=== PATIENT | male | born 1950 | race Caucasian/White ===

== ENCOUNTER → 2020-02-25 13:36 | Outpatient (BNVA) | payer MEDICARE, SELFPAY | PROVIDERS: PCP Family Medicine; Visit Provider Urology | DX: N40.1 Benign prostatic hyperplasia with lower urinary tract symptoms (principal); N13.8 Other obstructive and reflux uropathy; N52.01 Erectile dysfunction due to arterial insufficiency; Z79.899 Other long term (current) drug therapy | CPT/HCPCS: Q3014 ==

== ENCOUNTER → 2020-03-07 10:18 | Outpatient (BNVA) | payer MEDICARE, SELFPAY | PROVIDERS: PCP Family Medicine; Visit Provider Urology | DX: N40.1 Benign prostatic hyperplasia with lower urinary tract symptoms (principal); N13.8 Other obstructive and reflux uropathy; Z12.5 Encounter for screening for malignant neoplasm of prostate | CPT/HCPCS: 51798; 99212 ==

== ENCOUNTER → 2020-09-13 10:14 | Outpatient (BNVA) | payer MEDICARE, SELFPAY | PROVIDERS: PCP Family Medicine; Visit Provider Urology | DX: N40.1 Benign prostatic hyperplasia with lower urinary tract symptoms (principal); N13.8 Other obstructive and reflux uropathy; N52.01 Erectile dysfunction due to arterial insufficiency | CPT/HCPCS: 51798; 99212 ==

== ENCOUNTER → 2022-10-03 08:57 | Outpatient (BNVA) | payer OTHER, SELFPAY | PROVIDERS: PCP Family Medicine; Visit Provider Physician Assistant | DX: S39.012A Strain of muscle, fascia and tendon of lower back, initial encounter (principal); X50.9XXA Other and unspecified overexertion or strenuous movements or postures, initial encounter | CPT/HCPCS: 99202 ==

== ENCOUNTER 2023-03-21 10:34 | Outpatient (AMB) | payer MEDICARE, SELFPAY ==
--- NOTE | 2023-03-21 10:39 | MHC.OFFVIS ---
Intake Intake Visit Reasons: Elevated PSA Intake Note: Patient is Present for Follow Up Urology Medication: Sildenafil, Tadalafil, Tamsulosin Antibiotic Allergies: None Blood Thinners: Warfarin PVR: 30 Allergies oxycodone [From TYLOX] Allergy (Intermediate, Verified 03/21/23 10:43) RASH Tylox Allergy (Unknown, Uncoded 03/21/23 10:43) Unknown Medication List - Last Reconciled 03/21/23 by Allan Alba MD atorvastatin 40 mg PO DAILY lisinopril 10 mg PO DAILY sildenafil 100 mg PO DAILY PRN tadalafil 10 mg PO DAILY PRN tadalafil 10 mg PO DAILY 90 days tamsulosin 0.4 mg PO DAILY tamsulosin 0.8 mg (2 x 0.4 mg) PO BEDTIME 90 days trimethoprim 100 mg PO DAILY venlafaxine ER 150 mg PO DAILY warfarin 7.5 mg PO BEDTIME warfarin 1 mg PO DAILY zolpidem 5 mg PO BEDTIME PRN HPI HPI Comments History of Present Illness Details Matt is a pleasant male. He is a patient Dr. Rincon. He is seen for the following urologic issues - lower urinary tract symptoms - erectile dysfunction Question of slight rise of PSA Will repeat Also noted to have some weakness of stream Nocturia x3 Recommend cystoscopy to check for bladder neck opening Lower Urinary Tract Symptoms: Current visit is for further evaluation of, lower urinary tract symptoms, stable stream with urgency Prior treatment includes GreenLight laser 10/24 Prostate Symptom Score 6/20 , Moderate (9-19), Bother 3. Results from testing include cystoscopy Enlarged lateral lobes 09/24 bladder trabeculation diverticular Prior Prostate Score moderate. PSA / 2.8 4/20 1.7 Erectile dysfunction Failed off high-dose tadalafil daily Prescription provided Also using PGE 1 gel with some success Considering penile injections [facility] Medical History HTN (hypertension) Hyperlipidemia Depressive disorder Elevated PSA Benign prostatic hyperplasia with lower urinary tract symptoms Nocturia Erectile dysfunction due to arterial insufficiency Surgical History History of surgery Review of Systems Const Denies chills and Denies fever(s) Card Reports no additional complaints and Denies syncope Resp Denies cough GI Denies abdominal pain and Denies heartburn Reports as per HPI and Denies change in libido Neuro Denies syncope Psych Denies change in libido Endo Denies change in libido Physical Exam Const General: cooperative, healthy appearing, comfortable and no acute distress Orientation/consciousness: patient oriented x3 HEENT Face and sinus: Yes normal facial exam Mouth: moist mucous membranes Neck Neck: Yes normal visual inspection, Yes full ROM and Yes trachea midline Chest Chest palpation & inspection: normal inspection of the chest Resp Effort & Inspection: normal respiratory effort, able to speak in complete sentences and no respiratory distress GI Inspection: Yes normal to inspection Back/Spine/Pelvis Cervical Spine: normal cervical lordosis Thoracic/Lumbar Spine: thoracic and lumbar spine normal to inspection Skin General skin exam: no rashes or lesions noted Neuro General: patient oriented x3, gait normal, tone normal and moves all extremities Extrem General: Yes normal to inspection and Yes capillary refill normal Office Procedures Post Void Residual Post Residual Void Post Void Residual (PVR): 30 [id number] Void Residual by ultrasound Assessment & Plan Assessment & Plan (1) Erectile dysfunction due to arterial insufficiency: Code(s): N52.01 - Erectile dysfunction due to arterial insufficiency (2) BPH w urinary obs/LUTS: Code(s): N40.1 - Benign prostatic hyperplasia with lower urinary tract symptoms; N13.8 - Other obstructive and reflux uropathy Plan PSA, cystoscopy Orders: Orders AMB Post Void Residual by ultrasound Today N13.8 - Other obstructive and reflux uropathy, N40.1 - Benign prostatic hyperplasia with lower urinary tract symptoms Prostate Specific Antigen Today E11.69 - Type 2 diabetes mellitus with other specified complication, N13.8 - Other obstructive and reflux uropathy, N40.1 - Benign prostatic hyperplasia with lower urinary tract symptoms, N52.1 - Erectile dysfunction due to diseases classified elsewhere Medications: Discontinued tadalafil Discontinued Reason: Patient Completed Course 10 mg PO DAILY 90 days 90 tabs 0RF tamsulosin Discontinued Reason: Patient no longer taking 0.8 mg (2 x 0.4 mg) PO BEDTIME 90 days 180 caps 2RF Patient Instructions: Imaging studies, laboratory and physical exam results were discussed and reviewed in detail. No major barriers to patient understanding were identified. An opportunity to ask questions regarding the treatment plan was provided. All questions were answered. The patient expressed understanding and agreement with the above treatment plan. The patient is aware they should contact our office by phone for worsening of their current condition or the appearance of new urologic symptoms. Compliance is encouraged with any medications and followup testing that is ordered. It is a privilege to participate in the urologic care of your patient. If you have any questions or concerns regarding treatment for the above conditions, or other urologic issues, please do not hesitate to contact me. The office telephone contact is [phone]. This note is constructed using voice recognition software. While every effort has been made to ensure accuracy shell machine operator errors may have been included. Yours sincerely, Dr Allan Alba MD, [facility] - Urology Providers of Expert, Compassionate Care for the Genitourinary System Coding Level of Care Code Est Pt Level 4 (26715) Diagnoses Erectile dysfunction due to arterial insufficiency N52.01 BPH w urinary obs/LUTS N40.1; N13.8 CPT Codes Post Residual Void - PVR CPT Code: 76626-Pqhe Void Residual by ultrasound ([id number])
== END 2023-03-21 11:06 | disposition home or self-care (01) ==
PROVIDERS: PCP Family Medicine; Visit Provider Urology
DX: N52.01 Erectile dysfunction due to arterial insufficiency (principal); N40.1 Benign prostatic hyperplasia with lower urinary tract symptoms; N13.8 Other obstructive and reflux uropathy; R35.1 Nocturia; R39.12 Poor urinary stream
CPT/HCPCS: 99214

== ENCOUNTER → 2023-03-21 10:34 | Outpatient (BNVA) | payer MEDICARE, SELFPAY | PROVIDERS: PCP Family Medicine; Visit Provider Urology | DX: N40.1 Benign prostatic hyperplasia with lower urinary tract symptoms (principal); N13.8 Other obstructive and reflux uropathy; N52.01 Erectile dysfunction due to arterial insufficiency | CPT/HCPCS: 51798; 99212 ==

== ENCOUNTER 2023-03-21 11:15 | Outpatient (REF) | payer MEDICARE, SELFPAY ==
[2023-03-21 13:30] LABS: Prostate Specific Antigen 0.93 ng/mL (<0.05-4.0)
== END 2023-03-21 11:16 | disposition home or self-care (01) ==
LOC: HO.10HDL 11:15
PROVIDERS: Visit Provider Urology
DX: E11.69 Type 2 diabetes mellitus with other specified complication (principal); N52.1 Erectile dysfunction due to diseases classified elsewhere; N40.1 Benign prostatic hyperplasia with lower urinary tract symptoms; Z12.5 Encounter for screening for malignant neoplasm of prostate
CPT/HCPCS: 36415; 84153

== ENCOUNTER 2023-05-08 10:41 | Outpatient (AMB) | payer MEDICARE, SELFPAY ==
--- NOTE | 2023-05-08 10:51 | A.OFFVIS_ITS ---
Intake Intake Visit Reasons: cysto Intake Note: Patient is Present for Cystoscopy Urology Med: None Antibiotic Allergy: None Blood Thinner: Warfarin URO- G Disposable Cystoscope lot: [id number] exp: 09/18/2024 Allergies oxycodone [From TYLOX] Allergy (Intermediate, Verified 05/08/23 10:52) RASH Tylox Allergy (Unknown, Uncoded 05/08/23 10:52) Unknown Medication List - Last Reconciled 05/08/23 by Allan Alba MD atorvastatin 40 mg PO DAILY lisinopril 10 mg PO DAILY oxybutynin chloride ER 5 mg PO DAILY 30 days trimethoprim 100 mg PO DAILY venlafaxine ER 150 mg PO DAILY warfarin 7.5 mg PO BEDTIME warfarin 1 mg PO DAILY zolpidem 5 mg PO BEDTIME PRN HPI HPI Comments History of Present Illness Details Matt is a pleasant male. He is a patient Dr. Rincon. He is seen for the following urologic issues - lower urinary tract symptoms - erectile dysfunction Here for repeat cystoscopy to examine bladder neck Procedure performed proximally 4 years ago No current medications Open bladder neck Unstable bladder with grade 2/3 trabeculation and cellules Trial oxybutynin medications Lower Urinary Tract Symptoms: Current visit is for further evaluation of, lower urinary tract symptoms, stable stream with urgency Prior treatment includes GreenLight laser 10/24 Prostate Symptom Score 6/20 , Moderate (9-19), Bother 3. Results from testing include cystoscopy Enlarged lateral lobes / bladder trabeculation diverticular Prior Prostate Score moderate. PSA 9/19 2.8 4/20 1.7 Erectile dysfunction Failed off high-dose tadalafil daily Prescription provided Also using PGE 1 gel with some success Considering penile injections [facility] Medical History HTN (hypertension) Hyperlipidemia Depressive disorder Elevated PSA Benign prostatic hyperplasia with lower urinary tract symptoms Nocturia Erectile dysfunction due to arterial insufficiency Surgical History History of surgery Review of Systems Const Denies chills and Denies fever(s) Card Reports no additional complaints and Denies syncope Resp Denies cough GI Denies abdominal pain and Denies heartburn Reports as per HPI and Denies change in libido Neuro Denies syncope Psych Denies change in libido Endo Denies change in libido Physical Exam Const General: cooperative, healthy appearing, comfortable and no acute distress Orientation/consciousness: patient oriented x3 HEENT Face and sinus: Yes normal facial exam Mouth: moist mucous membranes Neck Neck: Yes normal visual inspection, Yes full ROM and Yes trachea midline Chest Chest palpation & inspection: normal inspection of the chest Resp Effort & Inspection: normal respiratory effort, able to speak in complete sentences and no respiratory distress GI Inspection: Yes normal to inspection Back/Spine/Pelvis Cervical Spine: normal cervical lordosis Thoracic/Lumbar Spine: thoracic and lumbar spine normal to inspection Skin General skin exam: no rashes or lesions noted Neuro General: patient oriented x3, gait normal, tone normal and moves all extremities Extrem General: Yes normal to inspection and Yes capillary refill normal Office Procedures Cystoscopy Consent Discussed risk and benefit or proposed procedure with the patient. Information consent for procedure given to the patient. Discussed technical aspects, risks, benefits and alternatives in full. Addressed all of the patient's questions and concerns regarding the procedure. The patient demonstrated knowledge and u nderstanding. They wish to proceed with this procedure. Preparation The patient was prepped in the usual manner. A jack winder was present and in the room. Genitalia was prepped with betadine solution in a sterile manner. Lidocaine Jelly 2% was placed into the urethra and 16Fr flexible Olympus cystoscope was inserted into the meatus after adequate lubrication. Procedure Meatus circumcised Urethra anterior and posterior urethra normal Prostatic Urethra open bladder neck Bladder examination with retroflexion of cystoscope Bladder Orifices normal shape and position Bladder Capacity large Trabeculations grade 2/3 Cellule Formation yes significant Diverticulum Formation small dome Mucosal Erythema - Bladder Tumor - [id number] DISPOSABLE SCOPE URO-G FLEXIBLE SCOPE Procedure code (CPT) selection complete Office Meds lidocaine HCl 2 % mucosal jelly in applicator Performing Provider: Allan Alba MD Performing Location: [facility] [place] [facility] Administered by: Yana Haddad RN on 05/08/23 11:03 Dose Route Admin Location Dispensed Lot Number Expiration Date NDC Cumulative Effects Analyst 10 mL intra-urethral 10 mL nitrofurantoin monohydrate/macrocrystals 100 mg capsule Performing Provider: Allan Alba MD Performing Location: [facility] [place] [facility] Administered by: Yana Haddad RN on 05/08/23 11:03 Dose Route Admin Location Dispensed Lot Number Expiration Date NDC Cumulative Effects Analyst 100 mg PO 1 cap naproxen 500 mg tablet Performing Provider: Allan Alba MD Performing Location: [facility] [place] [facility] Administered by: Yana Haddad RN on 05/08/23 11:03 Dose Route Admin Location Dispensed Lot Number Expiration Date NDC Cumulative Effects Analyst 500 mg PO 1 tab Results AMB Urinalysis, Automated UA Leukoctes 0 Nick/uL Last Edit by KUSHAL Bonner on 05/08/23 11:08 UA Nitrite Negative Last Edit by HORACE BonnerA on 05/08/23 11:08 UA Urobilinogen 0.2 mg/dL Last Edit by KUSHAL Bonner on 05/08/23 11:0 8 UA Protein 15 mg/dL Last Edit by Aida Yost A on 05/08/23 11:08 UA pH 5.0 Last Edit by HORACE BonnerA on 05/08/23 11:08 UA Blood 25 Glenn/uL Last Edit by Aida Yost Bhakti on 05/08/23 11:08 UA Specific Boyd 1.025 Last Edit by HORACE BonnerA on 05/08/23 11: 08 UA Ketone Negative Last Edit by KUSHAL Bonner on 05/08/23 11:08 UA Bilirubin 0 mg/dL Last Edit by HORACE BonnerA on 05/08/23 11:08 UA Glucose 0 mg/dL Last Edit by KUSHAL Bonner on 05/08/23 11:08 Results Reviewed Results Reviewed: Laboratory Last Values Urine pH (Auto) 5.0 05/08/23 10:53 Specific Boyd (Auto) 1.025 05/08/23 10:53 Urine Protein (Auto) 15 mg/dL 05/08/23 10:53 Glucose (UA)(Auto) 0 mg/dL 05/08/23 10:53 Urine Ketones (Auto) Negative 05/08/23 10:53 Urine Blood (Auto) 25 Glenn/uL 05/08/23 10:53 Urine Nitrite (Auto) Negative 05/08/23 10:53 Urine Bilirubin (Auto) 0 mg/dL 02/01/24 10:53 Urine Urobilinogen (Auto) 0.2 mg/dL 05/08/23 10:53 Leukocyte Esterase (Auto) 0 Nick/uL 05/08/23 10:53 Assessment & Plan Assessment & Plan (1) Overactive bladder: Code(s): N32.81 - Overactive bladder Plan Trial oxybutynin 2 month follow-up tele Orders: Orders AMB Cystoscopy Today N13.8 - Other obstructive and reflux uropathy, N40.1 - Benign prostatic hyperplasia with lower urinary tract symptoms AMB Urinalysis Automated Today Z13.9 - Encounter for screening, unspecified Medications: New oxybutynin chloride ER 5 mg PO DAILY 30 days 30 tabs 1RF N32.81 - Overactive bladder, R39.15 - Urgency of urination Patient Instructions: Imaging studies, laboratory and physical exam results were discussed and reviewed in detail. No major barriers to patient understanding were identified. An opportunity to ask questions regarding the treatment plan was provided. All questions were answered. The patient expressed understanding and agreement with the above treatment plan. The patient is aware they should contact our office by phone for worsening of their current condition or the appearance of new urologic symptoms. Compliance is encouraged with any medications and followup testing that is ordered. It is a privilege to participate in the urologic care of your patient. If you have any questions or concerns regarding treatment for the above conditions, or other urologic issues, please do not hesitate to contact me. The office telephone contact is [phone]. This note is constructed using voice recognition software. While every effort has been made to ensure accuracy solar engineer errors may have been included. Yours sincerely, Dr Allan Alba MD, [facility] - Urology Providers of Expert, Compassionate Care for the Genitourinary System Coding Level of Care Code Est Pt Level 4 (86930) Diagnoses Overactive bladder N32.81 CPT Codes Cystoscopy - CPT: 99410-Exfauzqyjc ([id number])
== END 2023-05-08 11:38 | disposition home or self-care (01) ==
PROVIDERS: PCP Family Medicine; Visit Provider Urology
DX: N40.1 Benign prostatic hyperplasia with lower urinary tract symptoms (principal); N13.8 Other obstructive and reflux uropathy; N32.81 Overactive bladder; Z13.9 Encounter for screening, unspecified
CPT/HCPCS: 52000; 99214

== ENCOUNTER → 2023-05-08 10:41 | Outpatient (BNVA) | payer MEDICARE, SELFPAY | PROVIDERS: PCP Family Medicine; Visit Provider Urology | DX: N32.81 Overactive bladder (principal); N40.1 Benign prostatic hyperplasia with lower urinary tract symptoms; N13.8 Other obstructive and reflux uropathy; N52.9 Male erectile dysfunction, unspecified | CPT/HCPCS: 52000; 81003; 99212 ==

== ENCOUNTER 2023-07-08 10:52 | Outpatient (AMB) | payer MEDICARE, SELFPAY ==
--- NOTE | 2023-07-08 10:56 | A.OFFVIS_ITS ---
Intake Intake Visit Reasons: 2M Med Review(Oxybuytnin) Intake Note: Patient is Present for Telephone Follow Up For Urology Med: Oxybutynin Antibiotic Allergy: None Blood Thinner: Warfarin Allergies oxycodone [From TYLOX] Allergy (Intermediate, Verified 07/08/23 10:57) RASH Tylox Allergy (Unknown, Uncoded 07/08/23 10:57) Unknown HPI HPI Comments History of Present Illness Details Matt is a pleasant male. He is a patient Dr. Rincon. He is seen for the following urologic issues - lower urinary tract symptoms - erectile dysfunction Telemedicine Evaluation 15 min Consultation [employer] Ghulam Video attempted Good response to anticholinergic Nocturia 2x down from 4x Better daytime control Will trial 10mg ER Open bladder neck on cystoscopy Unstable bladder with grade 2/3 trabeculation and cellules Lower Urinary Tract Symptoms: Current visit is for further evaluation of, lower urinary tract symptoms, stable stream with urgency Prior treatment includes GreenLight laser 10/24 Prostate Symptom Score 6/20 , Moderate (9-19), Bother 3. Results from testing include Cystoscopy Enlarged lateral lobes 09/24 bladder trabeculation diverticular Prior Prostate Score moderate. PSA 9/ 2.8 4/ 1.7 Erectile dysfunction Failed off high-dose tadalafil daily Prescription provided Also using PGE 1 gel with some success Considering penile injections [facility] Medical History HTN (hypertension) Hyperlipidemia Depressive disorder Elevated PSA Benign prostatic hyperplasia with lower urinary tract symptoms Nocturia Erectile dysfunction due to arterial insufficiency Surgical History History of surgery Review of Systems Const All systems reviewed & are unremarkable except as noted in HPI and below Reports no additional complaints Resp Reports no additional complaints GI Reports no additional complaints Reports as per HPI Musc Reports no additional complaints Physical Exam Telemedicine evaluation Appropriate responses Regular breathing rate and rhythm HEENT Head: Yes normal to inspection Ears: hearing grossly normal bilaterally Eyes General: appearance normal, both eyes and all related structures Neck Neck: Yes normal visual inspection Chest Chest palpation & inspection: normal inspection of the chest Resp Effort & Inspection: normal respiratory effort and able to speak in complete sentences Assessment & Plan Assessment & Plan (1) Overactive bladder: Code(s): N32.81 - Overactive bladder Plan Trial higher dose Patient Instructions: Imaging studies, laboratory and physical exam results were discussed and reviewed in detail. No major barriers to patient understanding were identified. An opportunity to ask questions regarding the treatment plan was provided. All questions were answered. The patient expressed understanding and agreement with the above treatment plan. The patient is aware they should contact our office by phone for worsening of their current condition or the appearance of new urologic symptoms. Compliance is encouraged with any medications and followup testing that is ordered. It is a privilege to participate in the urologic care of your patient. If you have any questions or concerns regarding treatment for the above conditions, or other urologic issues, please do not hesitate to contact me. The office telephone contact is [phone]. This note is constructed using voice recognition software. While every effort has been made to ensure accuracy machine deicer element winder errors may have been included. Yours sincerely, Dr Allan Alba MD, [facility] - Urology Providers of Expert, Compassionate Care for the Genitourinary System Telehealth Telehealth Location of provider rendering services: practice address Location of patient: address on file Patient Identification confirmed using: Name, : Yes Telehealth method: video Patient verbally consented to treatment: Yes Patient verbally consented to billing insurance company: Yes Patient informed of any privacy concerns related to visit: Yes Coding Level of Care Code Tele Est Pt Level 4 (22013) Diagnoses Overactive bladder N32.81
== END 2023-07-08 11:36 | disposition home or self-care (01) ==
LOC: HO.HUSH 10:52
PROVIDERS: PCP Family Medicine; Visit Provider Urology
DX: N32.81 Overactive bladder (principal)
CPT/HCPCS: 99214

== ENCOUNTER → 2023-07-08 10:52 | Outpatient (BNVA) | payer MEDICARE, SELFPAY | PROVIDERS: PCP Family Medicine; Visit Provider Urology ==

== ENCOUNTER 2023-09-12 11:58 | Outpatient (AMB) | payer MEDICARE, SELFPAY ==
--- NOTE | 2023-09-12 12:12 | MHC.OFFVIS ---
Intake Visit Reasons: 2m follow up Allergies oxycodone [From TYLOX] Allergy (Intermediate, Verified 07/08/23 10:57) RASH Tylox Allergy (Unknown, Uncoded 07/08/23 10:57) Unknown HPI Comments Details: Matt is a pleasant male. He is a patient Dr. Rincon. He is seen for the following urologic issues - lower urinary tract symptoms - erectile dysfunction Telemedicine Evaluation 15 min Consultation DoxFactyle Ghulam Video attempted Good response to anticholinergic Nocturia 2x down from 4x Better daytime control Open bladder neck on cystoscopy Unstable bladder with grade 2/3 trabeculation and cellules Lower Urinary Tract Symptoms: Current visit is for further evaluation of, lower urinary tract symptoms, stable stream with urgency Prior treatment includes GreenLight laser 10/24 Prostate Symptom Score 6/20 , Moderate (9-19), Bother 3. Results from testing include Cystoscopy Enlarged lateral lobes 09/24 bladder trabeculation diverticular Prior Prostate Score moderate. PSA 9/ 2.8 07/25 1.7 Erectile dysfunction Failed off high-dose tadalafil daily Prescription provided Also using PGE 1 gel with some success Considering penile injections [facility] Medical History HTN (hypertension) Hyperlipidemia Depressive disorder Elevated PSA Benign prostatic hyperplasia with lower urinary tract symptoms Nocturia Erectile dysfunction due to arterial insufficiency Surgical History History of surgery Review of Systems Const All systems reviewed & are unremarkable except as noted in HPI and below Reports no additional complaints Resp Reports no additional complaints GI Reports no additional complaints Reports as per HPI Musc Reports no additional complaints Physical Exam Telemedicine evaluation Appropriate responses Regular breathing rate and rhythm HEENT Head: Yes normal to inspection Ears: hearing grossly normal bilaterally Eyes General: appearance normal, both eyes and all related structures Neck Neck: Yes normal visual inspection Chest Chest palpation & inspection: normal inspection of the chest Resp Effort & Inspection: normal respiratory effort and able to speak in complete sentences Telehealth Telehealth Telehealth Platform: [employer] Location of provider rendering services: practice address Location of patient: address on file Patient Identification confirmed using: Name, : Yes Telehealth method: video Patient verbally consented to treatment: Yes Patient verbally consented to billing insurance company: Yes Patient informed of any privacy concerns related to visit: Yes Minutes spent on Phone/Video with Pt.: 15 Assessment & Plan Assessment & Plan (1) Overactive bladder: Code(s): N32.81 - Overactive bladder Category: Medical (2) BPH w urinary obs/LUTS: Code(s): N40.1 - Benign prostatic hyperplasia with lower urinary tract symptoms; N13.8 - Other obstructive and reflux uropathy Category: Medical (3) Erectile dysfunction due to arterial insufficiency: Code(s): N52.01 - Erectile dysfunction due to arterial insufficiency Category: Medical Plan Six-month follow-up Continue medication Patient Instructions: Imaging studies, laboratory and physical exam results were discussed and reviewed in detail. No major barriers to patient understanding were identified. An opportunity to ask questions regarding the treatment plan was provided. All questions were answered. The patient expressed understanding and agreement with the above treatment plan. The patient is aware they should contact our office by phone for worsening of their current condition or the appearance of new urologic symptoms. Compliance is encouraged with any medications and followup testing that is ordered. It is a privilege to participate in the urologic care of your patient. If you have any questions or concerns regarding treatment for the above conditions, or other urologic issues, please do not hesitate to contact me. The office telephone contact is [phone]. This note is constructed using voice recognition software. While every effort has been made to ensure accuracy property damage claims adjustor errors may have been included. Yours sincerely, Dr Allan Alba MD, [facility] - Urology Providers of Expert, Compassionate Care for the Genitourinary System Coding Level of Care Code Tele Est Pt Level 3 (33164) Diagnoses Overactive bladder N32.81 BPH w urinary obs/LUTS N40.1; N13.8 Erectile dysfunction due to arterial insufficiency N52.01
--- NOTE | 2023-09-12 12:55 | A.OFFVIS_ITS ---
Intake Visit Reasons: 2m follow up Allergies oxycodone [From TYLOX] Allergy (Intermediate, Verified 07/08/23 10:57) RASH Tylox Allergy (Unknown, Uncoded 07/08/23 10:57) Unknown [facility] Medical History HTN (hypertension) Hyperlipidemia Depressive disorder Elevated PSA Benign prostatic hyperplasia with lower urinary tract symptoms Nocturia Erectile dysfunction due to arterial insufficiency Surgical History History of surgery Telehealth Telehealth Location of provider rendering services: practice address Location of patient: address on file Patient Identification confirmed using: Name, : Yes Telehealth method: video Patient verbally consented to treatment: Yes Patient verbally consented to billing insurance company: Yes Patient informed of any privacy concerns related to visit: Yes Coding
== END 2023-09-12 13:06 | disposition home or self-care (01) ==
LOC: HO.HUSH 11:58
PROVIDERS: PCP Family Medicine; Visit Provider Urology
DX: N40.1 Benign prostatic hyperplasia with lower urinary tract symptoms (principal); N32.81 Overactive bladder; N13.8 Other obstructive and reflux uropathy; N52.01 Erectile dysfunction due to arterial insufficiency
CPT/HCPCS: 99213

== ENCOUNTER → 2023-09-12 11:58 | Outpatient (BNVA) | payer MEDICARE, SELFPAY | PROVIDERS: PCP Family Medicine; Visit Provider Urology ==

== ENCOUNTER 2024-03-16 10:39 | Outpatient (AMB) | payer MEDICARE, SELFPAY ==
--- NOTE | 2024-03-16 10:47 | MHC.OFFVIS ---
Intake Visit Reasons: 6m/PVR Intake Note: Patient is present for 6M/PVR Urology Medication:OXYBUTNIN Antibiotic Allergy:NONE Blood Thinner:WARFARIN Last PVR: Todays PVR:10ML'S Disability Hearing Officer Required: No Allergies oxycodone [From TYLOX] Allergy (Intermediate, Verified 03/16/24 10:48) RASH Tylox Allergy (Unknown, Uncoded 03/16/24 10:48) Unknown HPI Comments Details: Matt is a pleasant male. He is a patient Dr. Rincon. He is seen for the following urologic issues - lower urinary tract symptoms - erectile dysfunction Six-month follow-up Came off oxybutynin Continued good nocturia control Better daytime control Would prefer to stay off medications Open bladder neck on cystoscopy Unstable bladder with grade 2/3 trabeculation and cellules Lower Urinary Tract Symptoms: Primarily bladder instability Current visit is for further evaluation of, lower urinary tract symptoms, stable stream with urgency Prior treatment includes GreenLight laser 10/24 Prostate Symptom Score 09/24 , Moderate (9-19), Bother 3. Results from testing include Cystoscopy Enlarged lateral lobes 09/24 bladder trabeculation diverticular Prior Prostate Score moderate. PSA 12/24 2.8 07/25 1.7 Erectile dysfunction Failed off high-dose tadalafil daily Prescription provided Also using PGE 1 gel with some success Considering penile injections [facility] Medical History HTN (hypertension) Hyperlipidemia Depressive disorder Elevated PSA Benign prostatic hyperplasia with lower urinary tract symptoms Nocturia Erectile dysfunction due to arterial insufficiency Surgical History History of surgery Review of Systems Const Denies chills and Denies fever(s) Card Reports no additional complaints and Denies syncope Resp Denies cough GI Denies abdominal pain and Denies heartburn Reports as per HPI and Denies change in libido Neuro Denies syncope Psych Denies change in libido Endo Denies change in libido Physical Exam Const General: cooperative, healthy appearing, comfortable and no acute distress Orientation/consciousness: patient oriented x3 HEENT Face and sinus: Yes normal facial exam Mouth: moist mucous membranes Neck Neck: Yes normal visual inspection, Yes full ROM and Yes trachea midline Chest Chest palpation & inspection: normal inspection of the chest Resp Effort & Inspection: normal respiratory effort, able to speak in complete sentences and no respiratory distress GI Inspection: Yes normal to inspection Back/Spine/Pelvis Cervical Spine: normal cervical lordosis Thoracic/Lumbar Spine: thoracic and lumbar spine normal to inspection Skin General skin exam: no rashes or lesions noted Neuro General: patient oriented x3, gait normal, tone normal and moves all extremities Extrem General: Yes normal to inspection and Yes capillary refill normal Office Procedures Post Void Residual Post Residual Void Post Void Residual (PVR): 10 26270-Pdrq Void Residual by ultrasound Results AMB Urinalysis, Automated UA Leukoctes 0 Nick/uL Last Edit by EPIFANIO Huddleston on 03/16/24 11:00 UA Nitrite Negative Last Edit by EPIFANIO Huddleston on 03/16/24 11:00 UA Urobilinogen 0.2 mg/dL Last Edit by EPIFANIO Huddleston on 03/16/24 11:00 UA Protein 0 mg/dL Last Edit by EPIFANIO Huddleston on 03/16/24 11:00 UA pH 6.0 Last Edit by EPIFANIO Huddleston on 03/16/24 11:00 UA Blood 80 Glenn/uL Last Edit by EPIFANIO Huddleston on 03/16/24 11:00 UA Specific [place] 1.025 Last Edit by EPIFANIO Huddleston on 03/16/24 11:00 UA Ketone Negative Last Edit by EPIFANIO Huddleston on 03/16/24 11:00 UA Bilirubin 0 mg/dL Last Edit by EPIFANIO Huddleston on 03/16/24 11:00 UA Glucose 0 mg/dL Last Edit by EPIFANIO Huddleston on 03/16/24 11:00 Results Reviewed Results Reviewed: Laboratory Last Values Urine pH (Auto) 6.0 03/16/24 11:00 Specific [place] (Auto) 1.025 03/16/24 11:00 Urine Protein (Auto) 0 mg/dL 03/16/24 11:00 Glucose (UA)(Auto) 0 mg/dL 03/16/24 11:00 Urine Ketones (Auto) Negative 03/16/24 11:00 Urine Blood (Auto) 80 Glenn/uL 03/16/24 11:00 Urine Nitrite (Auto) Negative 03/16/24 11:00 Urine Bilirubin (Auto) 0 mg/dL 03/16/24 11:00 Urine Urobilinogen (Auto) 0.2 mg/dL 03/16/24 11:00 Leukocyte Esterase (Auto) 0 Nick/uL 03/16/24 11:00 Assessment & Plan Assessment & Plan (1) BPH w urinary obs/LUTS: Code(s): N40.1 - Benign prostatic hyperplasia with lower urinary tract symptoms; N13.8 - Other obstructive and reflux uropathy Category: Medical (2) Overactive bladder: Code(s): N32.81 - Overactive bladder Category: Medical Plan Twelve month follow-up PSA Orders: Orders AMB Urinalysis Automated Today Z13.9 - Encounter for screening, unspecified Prostate Specific Antigen 364 Days N13.8 - Other obstructive and reflux uropathy, N40.1 - Benign prostatic hyperplasia with lower urinary tract symptoms Medications: Discontinued oxybutynin chloride ER Discontinued Reason: Doctor's Order 5 mg PO DAILY 30 days 30 tabs 1RF N32.81 - Overactive bladder, R39.15 - Urgency of urination Patient Instructions: Imaging studies, laboratory and physical exam results were discussed and reviewed in detail. No major barriers to patient understanding were identified. An opportunity to ask questions regarding the treatment plan was provided. All questions were answered. The patient expressed understanding and agreement with the above treatment plan. The patient is aware they should contact our office by phone for worsening of their current condition or the appearance of new urologic symptoms. Compliance is encouraged with any medications and followup testing that is ordered. It is a privilege to participate in the urologic care of your patient. If you have any questions or concerns regarding treatment for the above conditions, or other urologic issues, please do not hesitate to contact me. The office telephone contact is [phone]. This note is constructed using voice recognition software. While every effort has been made to ensure accuracy software applications developer errors may have been included. Yours sincerely, Dr Allan Alba MD, [facility] - Urology Providers of Expert, Compassionate Care for the Genitourinary System Coding Level of Care Code Est Pt Level 3 (48271) Diagnoses BPH w urinary obs/LUTS N40.1; N13.8 Overactive bladder N32.81 CPT Codes Post Residual Void - PVR CPT Code: 15905-Dehd Void Residual by ultrasound ([id number])
== END 2024-03-16 11:26 | disposition home or self-care (01) ==
PROVIDERS: PCP Family Medicine; Visit Provider Urology
DX: N40.1 Benign prostatic hyperplasia with lower urinary tract symptoms (principal); N13.8 Other obstructive and reflux uropathy; N32.81 Overactive bladder; Z13.9 Encounter for screening, unspecified
CPT/HCPCS: 99213

== ENCOUNTER → 2024-03-16 10:39 | Outpatient (BNVA) | payer MEDICARE, SELFPAY | PROVIDERS: PCP Family Medicine; Visit Provider Urology | DX: N40.1 Benign prostatic hyperplasia with lower urinary tract symptoms (principal); N13.8 Other obstructive and reflux uropathy; N32.81 Overactive bladder | CPT/HCPCS: 51798; 81003; 99212 ==